=== PATIENT | female | born 1965 | race Caucasian/White ===

== ENCOUNTER 2019-04-25 18:09 | Inpatient (IN) | payer OTHER ==
[~2019-04-25] VITALS: Ht 170.2 cm; Wt 92.1 kg
[~2019-04-25 18:09] MED LIST: MOT600 PO; SOM350 PO; VICES PO
[2019-04-25 18:29] VITALS: Ht 170.2 cm; Wt 92.1 kg
--- NOTE | 2019-04-25 18:31 | NUR ---
PT SENT TO LOBBY TO WAIT FOR AVAILABLE BED. NO DISTRESS NOTED AND ALERT AND ORIENTED
--- NOTE | 2019-04-25 18:59 | NUR ---
PT CAME TO THE ED TODAY S/P BEING CALLED BY PMD TELLING HER THAT HER LABS ARE OFF AND THAT SHE NEEDS TO COME TO THE ED TO GET A BLOOD TRANSFUSION. PT IS UNSURE OF LAB VALUES. PT STATES SHE SUFFERS FROM ANEMIA, BUT FEELS IT IS GETTING WORSE. PT STATES SHE WENT TO HER PMD 3 DAYS AGO BECAUSE SHE WASNT FEELING WELL AND THEY DID BLOOD WORK AND THEN CALLED HER TODAY. PT STATES TODAY AND YESTERDAY SHE HAS BEEN UNABLE TO HOLD ANYTHING DOWN AND IS HAVING N/V AND DENIES ANY VOMITING. AT THIS TIME PT IS AWAKE AND ALERT. BREATHING EVEN AND UNLABORED. PT CHANGING INTO GOWN. PT DENIES ANY CP OR SOB. PT SITTING ON GURNEY WITH NAD. WILL CONTINUE TO MONITOR.
--- NOTE | 2019-04-25 19:02 | NUR ---
ABOVE NOTE DONE BY JALEN DILLON
--- NOTE | 2019-04-25 19:04 | NUR ---
ABOVE NOTE AND ASSESSMENT DONE BY JALEN DILLON. CORRECTION: PT DENIES ANY DIARRHEA AND IS HAVING N/V
--- NOTE | 2019-04-25 19:12 | NUR ---
RECEIVED PT REPORT FROM WILMA RAO. I WILL NOW ASSUME PRIMARY CARE OF PT
[2019-04-25 20:10] LABS: CALCIUM 8.2 mg/dL (8.5-10.1); CARBON DIOXIDE 28.6 mmol/L (21-32); CHLORIDE SERUM 103 mmol/L (98-107); CREATININE SERUM 0.8 mg/dL (0.6-1.0); GFR1 > 60 mL/min; GLUCOSE SERUM 93 mg/dL (74-106); POTASSIUM SERUM 3.9 mmol/L (3.5-5.1); SODIUM SERUM 136 mmol/L (136-145)
[2019-04-25 20:12] LABS: ALBUMIN 3.5 g/dL (3.4-5.0); ALKALINE PHOSPHATASE 49 U/L (46-116); ALT/SGPT 17 U/L (14-59); AST/SGOT 15 U/L (15-37); BASOPHIL % 0.5 % (0-2); BILIRUBIN TOTAL 0.56 mg/dL (0.20-1.00); TOTAL PROTEIN, SERUM 7.3 g/dL (6.4-8.2)
[2019-04-25 20:17] LABS: PLATELET COUNT 435 x10^3mcL (130-400); RED CELL DISTRIBUTION WIDTH 21.5 % (11.5-14.5)
[2019-04-25 20:33] LABS: rbc morphology (normal/abnorm) ABNORMAL (NORMAL)
--- NOTE | 2019-04-25 21:22 | NUR ---
PT REPORT CALLED TO DOMINGO RAO TO ASSUME PT CARE.
--- NOTE | 2019-04-25 22:10 | NUR ---
RECEIVED PT FROM ER, PT ADMIT FOR SEVERE SYMPTOMATIC ANEMIA, MENOMETRRHAGIA, PT IS A/O X4, VERBAL RESPONSIVE. C/O HEADACHE AND DIZZINESS, LUNG SOUND CLEAR BILATERAL, OCCASIONALLY COUGH, NO SOB. PT DENY ANY CHEST PAIN, BOWEL SOUND PRESENT ALL 4 QUADRANTS, NO DISTENTION, NO TENDER. PEDAL PULSE PRESENT BOTH FEET, NO EDEMA, IV AT LEFT AC, NO LEAKING, NO INFILTRAITON. PT STATE SHE HAS BEEN HAS TWICE PERIOD PER MONTH IN PAST 2 MONTH, HEAVY BLEEDING. LAST PERIOD WAS 2 WEEKS AGO AND IT LAST FOR 4 DAYS, AND TODAY SHE START PERIOD AGAIN. ALL ADLS ASSIST, ALL NEED MET, CALL LIGHT IN REACH, WILL CONTINUE TO MONITOR.
--- NOTE | 2019-04-25 22:11 | NUR ---
START THE BLOOD TRANSFUSION AT FLOOR. PT TOLERATED WELL. NO ASE NOTED. CONTINUE TO MONITOR THE PT.
[2019-04-25 22:15] VITALS: BP 145/57
--- NOTE | 2019-04-25 22:17 | NUR ---
PT TRANSFERRED TO [facility] BY TRIP BY MYSELF AND [facility] EMT. PT ON FULL CM FOR TRANSPORT AND PT AOX4, RESP EVEN AND UNLABORED, NO ACUTE DISTRESS NOTED. PT ACCEPTED BY KENNETH RAO TO ASSUME PT CARE. PACKED RED BLOOD CELLS PICKED UP FROM BLOOD BANK AND SPIKED BY MYSELF, CARE ENDORSED TO KENNETH RAO.
--- NOTE | 2019-04-25 22:27 | NUR ---
CALLED EXCHANGE FOR DR. HARDY TO GET ORDERS. WAITING FOR REPLY. WILL CONTINUE TO MONITOR.
[2019-04-25 22:39] VITALS: BP 145/57
--- NOTE | 2019-04-25 23:19 | NUR ---
PT C/O HEADACHE. GAVE PT TYLENOL PO. PT TOLERATED IT WELL. WILL CONTINUE TO MONITOR.
[2019-04-26] VITALS (7 sets, daily range): BP systolic 122–140; BP diastolic 74–78
--- NOTE | 2019-04-26 01:22 | NUR ---
BLOOD TRANSFUSION IS COMPLETED. LAST V/S IS 97.6, HR 62, B/P 128/70, HR 62, 18, PO2 97%, DENY ANY ASE, WILL CONTINUE TO MONITOR THE PT.
--- NOTE | 2019-04-26 02:00 | NUR ---
PT STARTED ON SECOND BLOOD TRANSFUSION. PT C/O DIZZINESS. WILL CONTINUE TO MONITOR.
--- NOTE | 2019-04-26 02:15 | NUR ---
PT IS 15 MINUTES INTO THE BLOOD TRANSFUSION. NO ADVERSE REACTION NOTED. VITAL SIGNS STABLE. WILL CONTINUE TO MONITOR.
--- NOTE | 2019-04-26 05:05 | NUR ---
PT FINISHED BLOOD TRANSFUSION. NO ADVERSE REACTION NOTED. VITAL SIGNS STABLE. PT C/O DIZZINESS. PER PT SHE USED 4 PADS SINCE BEING ADMITTED. ONE PAD WAS SEEN WITH MODERATE AMOUNT OF SANGIUNEOUS FLUID. WILL ENDORSE TO THE DAY SHIFT NURSE TO ASK THE DOCTOR WHEN TO DO BLOOD DRAW FOR LABS. MADE PT COMFORTABLE. PLACED CALL LIGHT WITH IN REACH. WILL ENDORSE TO THE AM NURSE ACCORDINGLY.
--- NOTE | 2019-04-26 07:04 | NUR ---
RECEIVED PT FROM FIRE RANGE TECHNICIAN NURSE. PT RESTING IN BED, AOX4, RESP E/U ON RA. REPORTED MILD DIZZINESS, OTHERWISE NO ACUTE DISTRESS NOTED. INSTRUCTED PT TO USE CALL LIGHT FOR ANY ASSISTANCE. SALINE LOCK TO LAC W/ NO ERYTHEMA OR EDEMA. BED IN LOWEST POSITION AND CALL LIGHT WITHINR REACH. WILL CONTINUE TO MONITOR.
[2019-04-26 11:18] LABS: BASOPHIL % 0 % (0-2); PLATELET COUNT 413 x10^3mcL (130-400); RED CELL DISTRIBUTION WIDTH 27.8 % (11.5-14.5)
[2019-04-26 11:25] LABS: CALCIUM 8.3 mg/dL (8.5-10.1); CARBON DIOXIDE 27.3 mmol/L (21-32); CHLORIDE SERUM 105 mmol/L (98-107); CREATININE SERUM 0.8 mg/dL (0.6-1.0); GFR1 > 60 mL/min; GLUCOSE SERUM 88 mg/dL (74-106); SODIUM SERUM 138 mmol/L (136-145)
--- NOTE | 2019-04-26 13:12 | NUR ---
PT RESTING IN BED, AOX4, RESP E/U ON RA. C/O MILD DIZZINESS AND HEADACHE AT THIS TIME, TOLERABLE TO PT, DENIES NAUSEA. ICE PACK PROVIDED, COMFORT MEASURES IMPLEMENTED. BED IN LOWEST POSITION AND CALL LIGHT WITHIN REACH. FAMILY MEMBER AT BEDSIDE. WILL CONTINUE TO MONITOR.
[2019-04-26 14:12] LABS: rbc morphology (normal/abnorm) ABNORMAL (NORMAL)
--- NOTE | 2019-04-26 18:10 | NUR ---
PT DISCHARGED. REVIEWED DISCHARGE PACKET W/ PT, INCLUDING NEW RX MEDS AND FOLLOW UP INSTRUCTIONS. PT AOX4, RESP E/U ON RA, VS STABLE, REPORTED MILD DIZZINESS BUT TOLERABLE, DENIES HEADACHE OR NAUSEA. IV TO LAC REMOVED, CATH INTACT, GAUZE DRESSING APPLIED. PT AMBULATORY TO [facility], ESCORTED BY [facility] W/ NO ACUTE INCIDENCE.
== END 2019-04-26 18:10 | disposition home or self-care (01) | DRG 532 ==
LOC: ED 18:09 → MU 20:50
PROVIDERS: Emergency Medicine; ADMIT Internal Medicine Pulmonary Disease
PROC: 30233N1 Transfusion of Nonautologous Red Blood Cells into Peripheral Vein, Percutaneous Approach (ICD-10-PCS; principal; 2019-04-25)
DX: N92.1 Excessive and frequent menstruation with irregular cycle (principal); D62 Acute posthemorrhagic anemia; E78.00 Pure hypercholesterolemia, unspecified; E78.5 Hyperlipidemia, unspecified; I10 Essential (primary) hypertension; Z88.0 Allergy status to penicillin
CPT/HCPCS: 90658; G0378; J2405; J7030; J7040; J7050; P9016

== ENCOUNTER 2019-07-08 21:46 | Emergency (ER) | payer OTHER ==
[~2019-07-08] VITALS: Ht 175.3 cm; Wt 98.4 kg
[2019-07-08 21:57] VITALS: BP 145/96; Ht 175.3 cm; Wt 98.4 kg
[2019-07-08 23:13] LABS: BASOPHIL % 0.4 % (0-2); PLATELET COUNT 330 x10^3mcL (130-400)
[2019-07-08 23:26] LABS: RED CELL DISTRIBUTION WIDTH 23.6 % (11.5-14.5)
[2019-07-08 23:56] LABS: rbc morphology (normal/abnorm) ABNORMAL (NORMAL)
[2019-07-09 00:05] LABS: CALCIUM 8.6 mg/dL (8.5-10.1); CARBON DIOXIDE 24.8 mmol/L (21-32); CHLORIDE SERUM 105 mmol/L (98-107); CREATININE SERUM 0.6 mg/dL (0.6-1.0); GFR1 > 60 mL/min; GLUCOSE SERUM 97 mg/dL (74-106); SODIUM SERUM 139 mmol/L (136-145)
[2019-07-09 00:10] LABS: ALBUMIN 3.3 g/dL (3.4-5.0); ALKALINE PHOSPHATASE 65 U/L (46-116); ALT/SGPT 21 U/L (14-59); AST/SGOT 16 U/L (15-37); TOTAL PROTEIN, SERUM 6.9 g/dL (6.4-8.2)
== END 2019-07-09 01:34 | disposition left against medical advice (07) ==
LOC: ED 21:46
PROVIDERS: Emergency Medicine
DX: M25.512 Pain in left shoulder (principal); M54.9 Dorsalgia, unspecified; M79.602 Pain in left arm; R20.0 Anesthesia of skin
CPT/HCPCS: 36415

== ENCOUNTER 2019-10-30 09:00 | Inpatient (IN) | payer OTHER, SELFPAY ==
[~2019-10-30] VITALS: Ht 175.3 cm; Wt 92.1 kg
[2019-11-06 09:33] VITALS: BP 130/94
[2019-11-06 17:51] VITALS: BP 133/87
[2019-11-06 20:38] VITALS: BP 131/91
[2019-11-07 06:00] VITALS: BP 121/76
[2019-11-07 07:38] LABS: BASOPHIL % 0.2 % (0-2); PLATELET COUNT 276 x10^3mcL (130-400)
[2019-11-07 08:33] VITALS: BP 128/78
[2019-11-07 13:52] VITALS: BP 120/75
[2019-11-07 17:42] VITALS: BP 121/76
[2019-11-07 21:15] VITALS: BP 111/70
[2019-11-08 05:47] VITALS: BP 107/69
[2019-11-08 08:15] VITALS: BP 101/56
[2019-11-08 12:05] VITALS: BP 118/75
[2019-11-08 16:49] VITALS: BP 126/81
[2019-11-08 20:11] VITALS: BP 102/59
[2019-11-09 04:44] VITALS: BP 114/71
[2019-11-09 08:15] VITALS: BP 107/67
[2019-11-09 08:19] VITALS: BP 106/47
[2019-11-09 13:11] VITALS: BP 109/64
[2019-11-09 16:40] VITALS: BP 117/75
[2019-11-09 19:09] VITALS: BP_SYST 2
== END 2019-11-09 20:02 | disposition home or self-care (01) | DRG 513 ==
LOC: DU 09:00 → MU 11-06 09:01 → DU 11-06 11:00 → MU 11-06 13:50
PROVIDERS: ADMIT Obstetrics & Gynecology; ATTEND Obstetrics & Gynecology
PROC: 0UT20ZZ Resection of Bilateral Ovaries, Open Approach (ICD-10-PCS; 2019-11-06)
PROC: 0UT70ZZ Resection of Bilateral Fallopian Tubes, Open Approach (ICD-10-PCS; 2019-11-06)
PROC: 0UT90ZZ Resection of Uterus, Open Approach (ICD-10-PCS; principal; 2019-11-06 11:00)
DX: N39.3 Stress incontinence (female) (male) (principal); N81.10 Cystocele, unspecified; N95.0 Postmenopausal bleeding; N81.6 Rectocele; Z88.0 Allergy status to penicillin; Z88.2 Allergy status to sulfonamides; Z20.828 Contact with and (suspected) exposure to other viral communicable diseases
CPT/HCPCS: G0378; J0690; J1885; J2270; J2405; J3010; J3490; J8597; U0003-CS

== ENCOUNTER 2020-01-12 19:02 | Emergency (ER) | payer OTHER ==
[~2020-01-12] VITALS: Ht 175.3 cm; Wt 95.7 kg
[2020-01-12 19:08] VITALS: BP 149/104; Ht 175.3 cm; Wt 95.7 kg
== END 2020-01-12 22:40 | disposition home or self-care (01) ==
LOC: ED 19:02
DX: M25.561 Pain in right knee (principal); M79.651 Pain in right thigh
CPT/HCPCS: J1885; Q0092